=== PATIENT | male | born 1970 | race Caucasian/White ===

== ENCOUNTER 2016-11-23 22:09 | Emergency (ER) | payer OTHER ==
[~2016-11-23] VITALS: Ht 175.3 cm; Wt 93.0 kg
[2016-11-23 22:12] VITALS: BP 113/69
--- NOTE | 2016-11-23 23:00 | NUR ---
Alfonso camargo in [facility] - 11/23/16 at 2320 by MEDDM TO ER OF1
--- NOTE | 2016-11-23 23:00 | NUR ---
Alfonso camargo in [facility] - 11/23/16 at 2332 by MEDDM BIB PARENTS TO ER BED 7
--- NOTE | 2016-11-23 23:00 | NUR ---
AMBULATED TO ER OF1 FROM [facility]
--- NOTE | 2016-11-23 23:02 | NUR ---
PT IS 46/M BIB SELF TO ED WITH C/O RASH SINCE 10/16/16. PT STATES MED HX OF ASTHMA.. DENIES N/V/D; SKIN IS PINK/WARM/DRY; AAOX4 WITH EVEN AND STEADY GAIT; LUNGS CLEAR BL; HR EVEN AND REGULAR; PT DENIES ANY FEVER, CP, SOB, OR COUGH AT THIS TIME; PATIENT STATES PAIN OF 8/10 ON LEFT ARM AT THIS TIME; VSS; PATIENT POSITIONED FOR COMFORT; HOB ELEVATED; BEDRAILS UP X2; BED DOWN. ER MD MADE AWARE OF PT STATUS.
--- NOTE | 2016-11-23 23:20 | NUR ---
Alfonso camargo in [facility] - 11/23/16 at 2332 by MEDHARINDER Patient being evaluated by physician at bedside.
--- NOTE | 2016-11-23 23:23 | NUR ---
Patient being evaluated by physician.
[2016-11-23] MEDS ORDERED: KETOROLAC 30 MG/ML VIAL IM ONE (23:30)
[2016-11-23] MEDS ORDERED: LIDOCAINE/EPI 1% 1:100000 20 ML VIAL INJ ONE (23:30)
[2016-11-23] MEDS ORDERED: HYDROcodone/APAP 5/325 MG 1 TAB TAB PO ONE (23:30)
--- NOTE | 2016-11-23 23:31 | NUR ---
MOVED TO ER BED 4
--- NOTE | 2016-11-24 00:46 | NUR ---
Patient discharged with v/s stable. Written and verbal after care instructions given and explained. Patient alert, oriented and verbalized understanding of instructions. Ambulatory with steady gait. All questions addressed prior to discharge. ID band removed. Patient advised to follow up with PMD. Rx of KEFLEX, NORCO, NAPROSYN, BACRIM given. Patient educated on indication of medication including possible reaction and side effects. Opportunity to ask questions provided and answered.
[2016-11-24 00:48] VITALS: BP 110/62
== END 2016-11-24 00:48 | disposition home or self-care (01) ==
LOC: MED 22:09
DX: L02.414 Cutaneous abscess of left upper limb (principal); J45.909 Unspecified asthma, uncomplicated; F17.210 Nicotine dependence, cigarettes, uncomplicated
CPT/HCPCS: 10060; 90471; 90715; 96372; 99284; J1885; J2001

== ENCOUNTER 2017-03-19 19:49 | Emergency (ER) | payer OTHER ==
[~2017-03-19] VITALS: Ht 177.8 cm; Wt 79.4 kg
[2017-03-19 20:26] VITALS: BP 142/92
[2017-03-19] MEDS ORDERED: KETOROLAC 30 MG/ML VIAL IVP ONE (21:15)
[2017-03-19] MEDS ORDERED: NACL 0.9% 1,000 ML IV ONE (21:15)
[2017-03-19 21:37] LABS: BASOPHILS # (AUTO) 0.2 K/uL (0.00-0.22); EOSINOPHILS # (AUTO) 0.2 K/uL (0-0.4); EOSINOPHILS % (AUTO) 2.2 % (0.0-4.0); HEMATOCRIT 47.2 % (36-52); HEMOGLOBIN 15.5 g/dL (12.0-18.0); LYMPHOCYTES # (AUTO) 2.4 K/uL (2.0-11.5); LYMPHOCYTES % (AUTO) 22.1 % (20.5-51.1); MEAN CORPUSCULAR HEMOGLOBIN 29 pg (27-31); MEAN CORPUSCULAR HGB CONC 33 g/dL (33-37); MEAN CORPUSCULAR VOLUME 87 fL (80-94); MONOCYTES # (AUTO) 1.2 K/uL (0.8-1.0); NEUTROPHILS # (AUTO) 6.7 K/uL (1.8-7.7); PLATELET COUNT (AUTO) 229 K/uL (140-450); RED BLOOD CELL COUNT(AUTO) 5.45 MIL/uL (4.20-6.10); RED CELL DISTRIBUTION WIDTH 13.6 % (11.6-13.7); WHITE BLOOD COUNT (AUTO) 10.7 K/uL (4.8-10.8)
--- NOTE | 2017-03-19 21:42 | NUR ---
BIBA TO ER OF1
[2017-03-19 21:48] LABS: ANION GAP 13.1 (8-16); CALCIUM 8.8 mg/dL (8.5-10.1); CARBON DIOXIDE 26.6 mmol/L (21-32); CREATININE 1.1 mg/dL (0.6-1.3); POTASSIUM 3.7 mmol/L (3.5-5.1)
[2017-03-19 21:53] LABS: ALBUMIN 3.6 g/dL (3.4-5.0); TOTAL BILIRUBIN 0.6 mg/dL (0.0-1.0); TOTAL PROTEIN, SERUM 7.1 g/dL (6.4-8.2)
[2017-03-19 22:20] VITALS: BP 134/88
--- NOTE | 2017-03-19 22:20 | NUR ---
Patient discharged with v/s stable. Written and verbal after care instructions given and explained. Patient verbalized understanding. Ambulatory with steady gait. All questions addressed prior to discharge. Advised to follow up with PMD.
== END 2017-03-19 22:20 | disposition home or self-care (01) ==
LOC: MED 19:49
DX: S83.91XA Sprain of unspecified site of right knee, initial encounter (principal); J45.909 Unspecified asthma, uncomplicated; F17.200 Nicotine dependence, unspecified, uncomplicated; X58.XXXA Exposure to other specified factors, initial encounter; Y93.89 Activity, other specified; Y92.89 Other specified places as the place of occurrence of the external cause; Y99.8 Other external cause status
CPT/HCPCS: 36415; 73562; 80053; 85025; 96374; 99285; J1885; J7030

== ENCOUNTER 2018-09-30 15:35 | Inpatient (IN) | payer OTHER ==
[~2018-09-30] VITALS: Ht 180.3 cm; Wt 99.8 kg
[2018-09-30 15:40] VITALS: BP 136/81
[2018-09-30] MEDS ORDERED: ACETAMINOPHEN EXTRA STRENGTH 500 MG TAB PO ONE (15:45)
[2018-09-30] MEDS ORDERED: ACETAMINOPHEN EXTRA STRENGTH 500 MG TAB ONE (15:54)
[2018-09-30] MEDS ORDERED: NACL 0.9% 1,000 ML IV ONE (16:10)
[2018-09-30] MEDS ORDERED: KETOROLAC 30 MG/ML VIAL IVP ONE (16:10)
[2018-09-30] MEDS ORDERED: LEVOFLOXACIN 500 MG/D5W PREMIX 100 ML IV ONE (16:10)
[2018-09-30] MEDS ORDERED: NACL 0.9% 2,000 ML IV SCH (16:10)
[2018-09-30] MEDS ORDERED: HYDROmorphone PFS 2 MG/ML SYR IVP ONE (16:10)
[2018-09-30] MEDS ORDERED: ONDANSETRON 4 MG/2 ML VIAL IVP ONE (16:10)
[2018-09-30] MEDS ORDERED: NACL 0.9% 1,000 ML IV SCH (16:10)
[2018-09-30 16:44] LABS: BASOPHILS % (AUTO) 0.4 % (0.0-2.0); EOSINOPHILS % (AUTO) 0.1 % (0.0-4.0); HEMATOCRIT 42.4 % (36-52); LYMPHOCYTES # (AUTO) 0.8 K/uL (2.0-11.5); LYMPHOCYTES % (AUTO) 6.6 % (20.5-51.1); MEAN CORPUSCULAR HEMOGLOBIN 28 pg (27-31); MEAN CORPUSCULAR HGB CONC 33 g/dL (33-37); MEAN CORPUSCULAR VOLUME 84.5 fL (80-94); MONOCYTES # (AUTO) 0.4 K/uL (0.8-1.0); MONOCYTES % (AUTO) 3.5 % (1.7-9.3); NEUTROPHILS # (AUTO) 10.5 K/uL (1.8-7.7); NEUTROPHILS % (AUTO) 89.4 % (42.2-75.2); PLATELET COUNT (AUTO) 246 K/uL (140-450); RED BLOOD CELL COUNT(AUTO) 5.02 MIL/uL (4.20-6.10); RED CELL DISTRIBUTION WIDTH 14.2 % (11.6-13.7); WHITE BLOOD COUNT (AUTO) 11.7 K/uL (4.8-10.8)
[2018-09-30 16:55] LABS: ANION GAP 11.6 (8-16); CARBON DIOXIDE 27.4 mmol/L (21-32)
[2018-09-30 17:00] LABS: ALBUMIN 3.6 g/dL (3.4-5.0); TOTAL BILIRUBIN 0.5 mg/dL (0.0-1.0)
[2018-09-30 17:03] LABS: APPEARANCE,URINE SL CLOUDY (CLEAR); BILIRUBIN,URINE NEGATIVE (NEGATIVE); BLOOD, URINE TRACE-I (NEGATIVE); COLOR,URINE YELLOW (YELLOW); LEUKOCYTE ESTERASE ,URINE 2+ (NEGATIVE); NITRITE, URINE POSITIVE (NEGATIVE); UGLUCOSE NEGATIVE (NEGATIVE)
[2018-09-30 17:04] LABS: RBC,URINE 0-5 (RARE) /HPF (0-5); WBC,URINE 16-25 (MOD) /HPF (0-5)
[2018-09-30] MEDS ORDERED: ONDANSETRON 4 MG/2 ML VIAL IVP PRN (18:10)
[2018-09-30] MEDS ORDERED: HYDROcodone/APAP 5/325 MG 1 TAB TAB PO PRN (18:10)
[2018-09-30] MEDS ORDERED: ACETAMINOPHEN 325 MG TAB PO PRN (18:10)
[2018-09-30 18:30] LABS: BARBITURATE, URINE NEG. ng/ml (NEG <=200); BENZODIAZEPINE, URINE NEG. ng/mL (NEG <=200); CANNABINOID, URINE POS. ng/mL (NEG <=50); COCAINE, URINE NEG. ng/mL (NEG <=300); OPIATE, URINE NEG. ng/mL (NEG <=2000); PHENCYCLIDINE SCREEN,URINE NEG. ng/mL (NEG <=25)
[2018-09-30] MEDS ORDERED: PIPERACILLIN/TAZOBACTAM 3.375 GM VIAL IV ONE (19:52)
[2018-09-30 20:00] VITALS: BP 102/45
[2018-09-30] MEDS: PIPERACILLIN/TAZOBACTAM 3.375 GM in DEXTROSE 5% 50 ML IV SCH (20:23)
[2018-09-30] MEDS: LACTATED RINGERS 1,000 ML IV SCH (23:35)
[2018-10-01] VITALS: BP 111/53
[2018-10-01] MEDS: HYDROcodone/APAP 5/325 MG 1 TAB TAB PO PRN ×2 (00:04→21:28)
[2018-10-01] MEDS ORDERED: PIPERACILLIN/TAZOBACTAM 3.375 GM VIAL IV ONE (04:01)
[2018-10-01] MEDS: PIPERACILLIN/TAZOBACTAM 3.375 GM in DEXTROSE 5% 50 ML IV SCH (04:29)
[2018-10-01 06:19] LABS: POTASSIUM 3.6 mmol/L (3.5-5.1)
[2018-10-01 06:20] LABS: ALBUMIN 2.7 g/dL (3.4-5.0); ANION GAP 14.3 (8-16); CARBON DIOXIDE 24.3 mmol/L (21-32); CREATININE 0.8 mg/dL (0.7-1.3); TOTAL BILIRUBIN 0.4 mg/dL (0.0-1.0)
[2018-10-01 06:27] LABS: BASOPHILS % (AUTO) 0.2 % (0.0-2.0); EOSINOPHILS % (AUTO) 0.2 % (0.0-4.0); HEMATOCRIT 38.8 % (36-52); HEMOGLOBIN 12.8 g/dL (12.0-18.0); LYMPHOCYTES % (AUTO) 10.3 % (20.5-51.1); MEAN CORPUSCULAR HEMOGLOBIN 29 pg (27-31); MEAN CORPUSCULAR HGB CONC 33 g/dL (33-37); MEAN CORPUSCULAR VOLUME 86.1 fL (80-94); MONOCYTES # (AUTO) 0.5 K/uL (0.8-1.0); MONOCYTES % (AUTO) 4.8 % (1.7-9.3); NEUTROPHILS # (AUTO) 7.9 K/uL (1.8-7.7); NEUTROPHILS % (AUTO) 84.5 % (42.2-75.2); PLATELET COUNT (AUTO) 193 K/uL (140-450); RED BLOOD CELL COUNT(AUTO) 4.51 MIL/uL (4.20-6.10); WHITE BLOOD COUNT (AUTO) 9.3 K/uL (4.8-10.8)
[2018-10-01 08:00] VITALS: BP 109/60
[2018-10-01] MEDS: ENOXAPARIN 40 MG/0.4 ML SYR SUBQ SCH (09:17)
[2018-10-01] MEDS: PIPER/TAZO 3.375GM/D5W PREMIX 50 ML IV SCH ×2 (12:28→21:07)
[2018-10-01] MEDS: LACTATED RINGERS 1,000 ML IV SCH ×2 (12:28→21:07)
[2018-10-01 16:00] VITALS: BP 140/66
[2018-10-01 20:00] VITALS: BP 127/47
[2018-10-02] VITALS: BP 141/75
[2018-10-02] MEDS ORDERED: PHENAZOPYRIDINE 100 MG TAB PO SCH (00:30)
[2018-10-02] MEDS: HYDROcodone/APAP 5/325 MG 1 TAB TAB PO PRN ×2 (02:30→09:26)
[2018-10-02] MEDS: PIPER/TAZO 3.375GM/D5W PREMIX 50 ML IV SCH ×2 (04:05→12:26)
[2018-10-02 07:09] LABS: BASOPHILS % (AUTO) 0.3 % (0.0-2.0); EOSINOPHILS # (AUTO) 0.1 K/uL (0-0.4); EOSINOPHILS % (AUTO) 0.8 % (0.0-4.0); HEMATOCRIT 40.8 % (36-52); HEMOGLOBIN 13.4 g/dL (12.0-18.0); LYMPHOCYTES # (AUTO) 1.3 K/uL (2.0-11.5); LYMPHOCYTES % (AUTO) 15.8 % (20.5-51.1); MEAN CORPUSCULAR HEMOGLOBIN 28 pg (27-31); MEAN CORPUSCULAR HGB CONC 33 g/dL (33-37); MEAN CORPUSCULAR VOLUME 85.5 fL (80-94); MONOCYTES # (AUTO) 0.7 K/uL (0.8-1.0); MONOCYTES % (AUTO) 8.5 % (1.7-9.3); NEUTROPHILS # (AUTO) 6.3 K/uL (1.8-7.7); NEUTROPHILS % (AUTO) 74.6 % (42.2-75.2); PLATELET COUNT (AUTO) 207 K/uL (140-450); RED BLOOD CELL COUNT(AUTO) 4.77 MIL/uL (4.20-6.10); RED CELL DISTRIBUTION WIDTH 14.1 % (11.6-13.7); WHITE BLOOD COUNT (AUTO) 8.5 K/uL (4.8-10.8)
[2018-10-02 08:00] VITALS: BP 124/64
[2018-10-02 08:14] LABS: ANION GAP 14.6 (8-16); CARBON DIOXIDE 24.2 mmol/L (21-32); CREATININE 0.8 mg/dL (0.7-1.3); POTASSIUM 3.8 mmol/L (3.5-5.1); TOTAL BILIRUBIN 0.4 mg/dL (0.0-1.0)
[2018-10-02] MEDS ORDERED: DOCUSATE SOD/SENNA 50/8.6 MG 1 TAB PO PRN (09:05)
[2018-10-02] MEDS: PHENAZOPYRIDINE 100 MG TAB PO SCH ×3 (09:27→17:35)
[2018-10-02] MEDS: NICOTINE TRANSD SYS 21 MG/24 HR PATCH TD SCH (09:27)
[2018-10-02] MEDS: LACTATED RINGERS 1,000 ML IV SCH (09:28)
[2018-10-02] MEDS ORDERED: TAMSULOSIN 0.4 MG CAP PO SCH (09:30)
[2018-10-02] MEDS ORDERED: LACTULOSE 20 GM/30 ML UDC PO SCH (09:30)
[2018-10-02] MEDS ORDERED: POLYETHYLENE GLYCOL 17 GM/PKT PO SCH (09:30)
[2018-10-02] MEDS: ENOXAPARIN 40 MG/0.4 ML SYR SUBQ SCH (09:33)
[2018-10-02 16:00] VITALS: BP 125/77
[2018-10-02] MEDS: LACTULOSE 20 GM/30 ML UDC PO SCH (20:11)
[2018-10-03] VITALS: BP 119/54
[2018-10-03] MEDS: LACTATED RINGERS 1,000 ML IV SCH ×2 (01:25→13:27)
[2018-10-03] MEDS: HYDROcodone/APAP 5/325 MG 1 TAB TAB PO PRN ×2 (01:29→11:56)
[2018-10-03 06:48] LABS: BASOPHILS % (AUTO) 0.6 % (0.0-2.0); EOSINOPHILS # (AUTO) 0.1 K/uL (0-0.4); HEMATOCRIT 41.6 % (36-52); LYMPHOCYTES # (AUTO) 1.8 K/uL (2.0-11.5); MEAN CORPUSCULAR HEMOGLOBIN 29 pg (27-31); MEAN CORPUSCULAR HGB CONC 34 g/dL (33-37); MEAN CORPUSCULAR VOLUME 85.4 fL (80-94); MONOCYTES # (AUTO) 0.9 K/uL (0.8-1.0); MONOCYTES % (AUTO) 11.9 % (1.7-9.3); NEUTROPHILS # (AUTO) 4.6 K/uL (1.8-7.7); NEUTROPHILS % (AUTO) 62.5 % (42.2-75.2); PLATELET COUNT (AUTO) 216 K/uL (140-450); RED BLOOD CELL COUNT(AUTO) 4.87 MIL/uL (4.20-6.10); WHITE BLOOD COUNT (AUTO) 7.3 K/uL (4.8-10.8)
[2018-10-03 06:53] LABS: ALBUMIN 2.9 g/dL (3.4-5.0); ANION GAP 13.2 (8-16); CARBON DIOXIDE 24.6 mmol/L (21-32); CREATININE 0.6 mg/dL (0.7-1.3); POTASSIUM 3.8 mmol/L (3.5-5.1); TOTAL BILIRUBIN 0.3 mg/dL (0.0-1.0)
[2018-10-03 08:00] VITALS: BP 139/70
[2018-10-03] MEDS ORDERED: TAMSULOSIN 0.4 MG CAP PO SCH (08:30)
[2018-10-03] MEDS: ENOXAPARIN 40 MG/0.4 ML SYR SUBQ SCH (09:00)
[2018-10-03] MEDS ORDERED: POLYETHYLENE GLYCOL 17 GM/PKT PO SCH (09:00)
[2018-10-03] MEDS: PHENAZOPYRIDINE 100 MG TAB PO SCH ×2 (10:09→13:26)
[2018-10-03] MEDS: LACTULOSE 20 GM/30 ML UDC PO SCH (10:12)
[2018-10-03] MEDS: NICOTINE TRANSD SYS 21 MG/24 HR PATCH TD SCH (10:13)
[2018-10-03] MEDS ORDERED: ALPRAZolam 0.5 MG TAB PO PRN (10:15)
[2018-10-03] MEDS ORDERED: AZITHROMYCIN 250 MG TAB PO SCH (10:30)
[2018-10-03] MEDS ORDERED: LIDOCAINE 2% 100 MG/5 ML UJET TP SCH ×2 (13:00→13:56)
== END 2018-10-03 15:15 | disposition left against medical advice (07) | DRG 720 ==
LOC: MED 15:35 → MIC 18:55 → MTU 10-01 17:40
PROVIDERS: ADMIT Hospitalist; ATTEND Hospitalist
PROC: 0T7D7ZZ Dilation of Urethra, Via Natural or Artificial Opening (ICD-10-PCS; principal; 2018-10-03)
DX: A41.50 Gram-negative sepsis, unspecified (principal); E87.1 Hypo-osmolality and hyponatremia; F15.20 Other stimulant dependence, uncomplicated; J45.909 Unspecified asthma, uncomplicated; F12.20 Cannabis dependence, uncomplicated; N35.919 Unspecified urethral stricture, male, unspecified site; N34.2 Other urethritis; B96.4 Proteus (mirabilis) (morganii) as the cause of diseases classified elsewhere; Z53.21 Procedure and treatment not carried out due to patient leaving prior to being seen by health care provider; A64 Unspecified sexually transmitted disease; Z59.0 Homelessness; Z72.0 Tobacco use; Z28.21 Immunization not carried out because of patient refusal
CPT/HCPCS: 36415; 36600; 76870; 80053; 80305; 81001; 82150; 82803; 83605; 83690; 84484; 85025; 87040; 87081; 87086; 87186; 93005; 96361; 96374; 96375; 99285; J0690; J0696; J1170; J1650; J1885; J1956; J2543; J7030; J7060; J7120; Q0092

== ENCOUNTER 2020-08-16 13:02 | Emergency (ER) | payer OTHER ==
[~2020-08-16] VITALS: Ht 167.6 cm; Wt 86.2 kg
--- NOTE | 2020-08-16 13:05 | NUR ---
Patient BIBA BLS, transferred to bed 9. RN evaluating patient at bedside.
[2020-08-16 13:08] VITALS: BP 121/66
--- NOTE | 2020-08-16 13:16 | NUR ---
49 y/o male c/o gen weakness x3 days. Pt states he is very hungry and has not eaten much in "the last few days". Denies N/V/D. Pt states 8/10 pain with ambulation due to constantly walking. Awake and alert, rr even and unlabored. Positioned for comfort. VSS medhx: afib, asthma
[2020-08-16] MEDS ORDERED: NACL 0.9% 1,000 ML IV ONE (13:50)
[2020-08-16 14:24] LABS: BASOPHILS # (AUTO) 0.1 K/uL (0.00-0.22); BASOPHILS % (AUTO) 0.7 % (0.0-2.0); EOSINOPHILS # (AUTO) 0.2 K/uL (0-0.4); EOSINOPHILS % (AUTO) 2.3 % (0.0-4.0); HEMATOCRIT 43.6 % (36-52); HEMOGLOBIN 14.6 g/dL (12.0-18.0); LYMPHOCYTES # (AUTO) 1.9 K/uL (2.0-11.5); LYMPHOCYTES % (AUTO) 19.2 % (20.5-51.1); MEAN CORPUSCULAR HEMOGLOBIN 29 pg (27-31); MEAN CORPUSCULAR HGB CONC 34 g/dL (33-37); MEAN CORPUSCULAR VOLUME 85.9 fL (80-94); MONOCYTES % (AUTO) 9.6 % (1.7-9.3); NEUTROPHILS # (AUTO) 6.8 K/uL (1.8-7.7); NEUTROPHILS % (AUTO) 68.2 % (42.2-75.2); PLATELET COUNT (AUTO) 245 K/uL (140-450); RED BLOOD CELL COUNT(AUTO) 5.08 MIL/uL (4.20-6.10); RED CELL DISTRIBUTION WIDTH 14.3 % (11.6-13.7); WHITE BLOOD COUNT (AUTO) 9.9 K/uL (4.8-10.8)
[2020-08-16 14:39] LABS: ALBUMIN 3.5 g/dL (3.4-5.0); CARBON DIOXIDE 26.8 mmol/L (21-32); POTASSIUM 3.8 mmol/L (3.5-5.1); TOTAL BILIRUBIN 0.3 mg/dL (0.0-1.0)
[2020-08-16 15:08] VITALS: BP 118/64
== END 2020-08-16 15:08 | disposition home or self-care (01) ==
LOC: MED 13:02
DX: E86.0 Dehydration (principal); R53.1 Weakness; J45.909 Unspecified asthma, uncomplicated
CPT/HCPCS: 36415; 80053; 85025; 96360; 99283; J7030

== ENCOUNTER 2022-07-29 01:52 | Emergency (ER) | payer OTHER ==
[~2022-07-29] VITALS: Ht 180.3 cm; Wt 108.9 kg
--- NOTE | 2022-07-29 01:55 | NUR ---
PT BIBA BLS ER BED 3
--- NOTE | 2022-07-29 02:00 | NUR ---
PT BIBA FOR ABD PAIN, REPORT GIVEN TO ASHTYN ROLDAN.
[2022-07-29 02:10] VITALS: BP 116/84
[2022-07-29] MEDS ORDERED: METOCLOPRAMIDE 10 MG/2 ML INJ VIAL IVP ONE (02:15)
[2022-07-29] MEDS ORDERED: NACL 0.9% 1,000 ML IV ONE (02:15)
[2022-07-29 02:35] LABS: BASOPHILS # (AUTO) 0.1 K/uL (0.00-0.22); BASOPHILS % (AUTO) 0.6 % (0.0-2.0); EOSINOPHILS # (AUTO) 0.2 K/uL (0-0.4); EOSINOPHILS % (AUTO) 1.8 % (0.0-4.0); HEMATOCRIT 47.8 % (36-52); LYMPHOCYTES # (AUTO) 2.3 K/uL (2.0-11.5); LYMPHOCYTES % (AUTO) 18.8 % (20.5-51.1); MEAN CORPUSCULAR HEMOGLOBIN 29 pg (27-31); MEAN CORPUSCULAR HGB CONC 33 g/dL (33-37); MONOCYTES # (AUTO) 0.7 K/uL (0.8-1.0); MONOCYTES % (AUTO) 5.6 % (1.7-9.3); NEUTROPHILS % (AUTO) 73.2 % (42.2-75.2); PLATELET COUNT (AUTO) 270 K/uL (140-450); RED BLOOD CELL COUNT(AUTO) 5.56 MIL/uL (4.20-6.10); RED CELL DISTRIBUTION WIDTH 14.4 % (11.6-13.7); WHITE BLOOD COUNT (AUTO) 12.3 K/uL (4.8-10.8)
[2022-07-29] MEDS ORDERED: METOCLOPRAMIDE 10 MG/2 ML INJ VIAL IM ONE (02:45)
--- NOTE | 2022-07-29 02:46 | NUR ---
Will medicate pt with IM order of Reglan. Pt will then be taken to shower. Pt has had N/V/D x 3 days. Pt very unkept, has feces all over hiself to include urine. Pt is homeless. Will follow through any other orders given. Updated pt on POC with full returned verbal understanding. Pt in position of comfort. Will continue to monitor.
[2022-07-29 02:53] LABS: ALBUMIN 3.7 g/dL (3.4-5.0); CARBON DIOXIDE 25.3 mmol/L (21-32); CREATININE 0.9 mg/dL (0.6-1.3); POTASSIUM 3.3 mmol/L (3.5-5.1); TOTAL BILIRUBIN 0.4 mg/dL (0.0-1.0)
--- NOTE | 2022-07-29 03:35 | NUR ---
Pt taken to [facility] floor for a shower. Security with pt.
--- NOTE | 2022-07-29 04:59 | NUR ---
Pt Discharged, attempting to state he is not ready and trying to refuse to leave. Pt is A&Ox4, rr even and unlabored. Pt did not pickle pumper his prescription that was given to him by [facility]. Pt was given a shower, provided paper scrubs, socks. Very clean at time of discharge. Pt was also medicated and given IVF. Ok for discharge. Pt ambulates to exit with a steady gait, refusing to give take gown off and put on paper scrubs. Pt escorted out by security.
[2022-07-29 05:06] VITALS: BP 118/75
[2022-07-29] MEDS ORDERED: ONDA-188 SL (10:12)
[2022-07-29] MEDS ORDERED: LOPE-289 PO (10:12)
== END 2022-07-29 04:53 | disposition home or self-care (01) ==
LOC: MED 01:52
DX: K52.9 Noninfective gastroenteritis and colitis, unspecified (principal); I10 Essential (primary) hypertension; Z79.899 Other long term (current) drug therapy
CPT/HCPCS: 36415; 80053; 83690; 85025; 96372; 99283; J2765

== ENCOUNTER 2022-07-29 07:42 | Emergency (ER) | payer OTHER ==
[~2022-07-29] VITALS: Ht 177.8 cm; Wt 83.9 kg
[2022-07-29 07:45] VITALS: BP 110/65
[2022-07-29] MEDS ORDERED: METOCLOPRAMIDE 10 MG/2 ML INJ VIAL IVP ONE (08:10)
[2022-07-29] MEDS ORDERED: NACL 0.9% 1,000 ML IV ONE (08:10)
[2022-07-29] MEDS ORDERED: LOPERAMIDE 2 MG CAP PO ONE (08:10)
--- NOTE | 2022-07-29 08:15 | NUR ---
PT W/C ASSISTED TO BED 9
--- NOTE | 2022-07-29 08:33 | NUR ---
PT C/O N/V/D X3 DAYS. SEEN IN ED DC 0400, PT STATES NO RELIEF FROM SYMPTOMS. IV INSERTED TO RIGHT THUMB #20GUAGE MEDICATED PER ORDER. NAD. SAFETY MAINTAINED.
[2022-07-29] MEDS ORDERED: ONDA-188 SL (10:12)
[2022-07-29] MEDS ORDERED: LOPE-289 PO (10:12)
--- NOTE | 2022-07-29 10:27 | NUR ---
Patient discharged with v/s stable. Written and verbal after care instructions given and explained. Patient alert, oriented and verbalized understanding of instructions. Ambulatory with steady gait. All questions addressed prior to discharge. ID band removed. Patient advised to follow up with PMD. Rx of zofran, imodium (script) given. Patient educated on indication of medication including possible reaction and side effects. Opportunity to ask questions provided and answered.
[2022-07-29 11:11] VITALS: BP 115/70
== END 2022-07-29 10:26 | disposition home or self-care (01) ==
LOC: MED 07:42
DX: R11.2 Nausea with vomiting, unspecified (principal); R19.7 Diarrhea, unspecified; I10 Essential (primary) hypertension; J45.909 Unspecified asthma, uncomplicated; I25.10 Atherosclerotic heart disease of native coronary artery without angina pectoris; Z79.899 Other long term (current) drug therapy
CPT/HCPCS: 96361; 96374; 99283; J2765; J7030